=== PATIENT | female | born 2000 | race Caucasian/White ===

== ENCOUNTER 2020-06-05 16:44 | Emergency (ER) | payer BC, SELFPAY ==
[2020-06-05 16:54] VITALS: BP 137/89; PULSE 135; RESP 20; TEMP 37.1; O2SAT 100
--- NOTE | 2020-06-05 17:00 | ED.SKABFB ---
HPI - Skin/Abscess/Foreign Bdy General Chief complaint: Skin/Abscess/Foreign Body Stated complaint: Pos insect bite Time Seen by Provider: 06/05/20 16:56 Source: RN notes reviewed Mode of arrival: ambulatory Limitations: no limitations History of Present Illness HPI narrative: Patient presents today complaining of redness and possible insect bite to her left second finger. She noticed the insect bite last night, but noted red streaking up her hand today. She denies any pain, but states she does have some tingling in the finger. She has tried some Neosporin without relief. complaint: insect bite/sting and discoloration Related Data Home Medications Medication Instructions Recorded Confirmed dextroamphetamine-amphetamine 7.5 mg PO DAILY 06/05/20 06/05/20 [Adderall] Allergies Allergy/AdvReac Type Severity Reaction Status Date / Time No Known Allergies Allergy Verified 06/05/20 16:46 Review of Systems Review of Systems: Narrative: CONSTITUTIONAL: Denies body aches, fever, chills, or sweats. EYES: Denies visual changes, redness, or discharge. ENT: Denies rhinorrhea, congestion, sore throat, or otalgia. CARDIOVASCULAR: Denies chest pain, palpitations, or edema. RESPIRATORY: Denies cough or dyspnea. GASTROINTESTINAL: Denies abdominal pain, nausea, vomiting, or diarrhea. GENITOURINARY: Denies dysuria or hematuria. SKIN: Denies rash, itching, or wounds. MUSCULOSKELETAL: Denies back pain, or myalgia. Possible insect bite to left second finger with redness NEUROLOGIC: Denies headache, numbness, tingling, or weakness. PSYCH: Denies depression or anxiety. PMFSH Past Medical History Medical History (Updated 06/05/20 @ 17:05 by Sujata Wilson, [employer], ) ADHD Anxiety Social History Social History Gender identity (if verbalized by the patient): Female Comments At time of signature, I have reviewed and agree with nursing past medical, surgical, social and family history unless otherwise noted. Please see nursing chart for further information. There is no relevant family history pertinent to the presenting complaint Exam Narrative: Exam Narrative: GENERAL: Well-appearing, well-nourished, and in no acute distress. HEAD: Normocephalic, atraumatic. EYES: EOMI. No redness or drainage. Conjunctivae normal. ENT: Mucous membranes pink and moist. NECK: Normal AROM. CHEST: No respiratory distress. EXTREMITIES: Left second finger: Small puncture wound and scab to the PIP with surrounding erythema. Patient does have some lymphangitis red streaking traveling up to the distal radius. Distal sensation intact. Capillary refill normal. Radial pulse normal. Full range of motion of the wrist. Somewhat limited range of motion of the finger due to mild edema. SKIN: Warm, dry, no rash. Capillary refill normal. Normal skin turgor. NEURO: No focal deficits. Alert and oriented x3. Gait steady. PSYCH: Normal affect. No signs of depression or anxiety. Course Vital Signs Vital signs: Vital Signs Temperature 98.8 F 06/05/20 16:54 Pulse Rate 135 H 06/05/20 16:54 Respiratory Rate 06/05/20 16:54 Blood Pressure 137/89 06/05/20 16:54 Pulse Oximetry 100 06/05/20 16:54 Temperature 98.8 F 06/05/20 16:54 Pulse Rate 135 H 06/05/20 16:54 Respiratory Rate 06/05/20 16:54 Blood Pressure 137/89 06/05/20 16:54 Pulse Oximetry 100 06/05/20 16:54 Reviewed. Pt has been instructed to follow up with her PCP regarding her elevated blood pressure today. MDM - Skin/Abscess/Foreign Bdy Differential Diagnosis Differential diagnosis: Likely abscess of skin or subcutaneous tissue, urticaria, cellulitis, eczema, insect bites, impetigo, contact dermatitis and other (Herpetic daniel) Critical Care Time Critical Care Time Critical Care Time: No Discharge Plan Discharge Clinical Impression: Insect bites Qualifiers: Encounter type: initial encounter Site of insect bite: finger Finger: index fi
== END 2020-06-05 17:07 | disposition home or self-care (01) ==
PROVIDERS: Emergency Provider Nurse Practitioner
DX: S60.461A Insect bite (nonvenomous) of left index finger, initial encounter (principal); L03.012 Cellulitis of left finger; W57.XXXA Bitten or stung by nonvenomous insect and other nonvenomous arthropods, initial encounter; F90.9 Attention-deficit hyperactivity disorder, unspecified type
CPT/HCPCS: 99213; G0463

== ENCOUNTER 2021-03-07 23:44 | Emergency (ER) | payer BC, SELFPAY ==
[2021-03-07 23:54] VITALS: BP 120/86; PULSE 98; RESP 20; TEMP 37.3; O2SAT 100
--- NOTE | 2021-03-08 | ED.EAR ---
HPI - Ear Problem General Chief complaint: Ear Stated complaint: sinus infection Time Seen by Provider: 03/07/21 23:54 Source: patient Mode of arrival: ambulatory Limitations: no limitations History of Present Illness HPI Narrative: 20-year-old with no major medical problems here with complaints of left ear pain for past 2 days. She states that she may also have sinus infection. No history of fever or chills. She denies any cough or shortness of breath. MD Complaint: ear pain Location: left ear Duration: constant Severity: moderate Relieving factors: nothing Exacerbating factors: nothing Discharge from ear: Reports no Associated symptoms ear: headache Related Data Home Medications Medication Instructions Recorded Confirmed dextroamphetamine-amphetamine 7.5 mg PO DAILY 06/05/20 06/05/20 [Adderall] Allergies Allergy/AdvReac Type Severity Reaction Status Date / Time No Known Allergies Allergy Verified 06/05/20 16:46 Review of Systems Review of Systems: All systems reviewed & are unremarkable except as noted in HPI and below Constitutional: Constitutional: Reports no additional constitutional complaints Eyes: Eyes: Reports no additional eye complaints ENT: Reports as per HPI Cardiovascular: Cardiovascular: Reports no additional cardiovascular complaints Respiratory: Respiratory: Reports no additional respiratory complaints Gastrointestinal: Gastrointestinal: Reports no additional gastrointestinal complaints Musculoskeletal: Musculoskeletal: Reports no additional musculoskeletal complaints [facility] Past Medical History Medical History ADHD Anxiety Social History Social History Gender identity (if verbalized by the patient): Female Exam Narrative: Exam Narrative: GENERAL: Well-appearing, well-nourished, and in no acute distress. HEAD: Normocephalic, atraumatic. EYES: PERRLA and EOMI. ENT: Nares clear, no rhinorrhea or epistaxis. Mucous membranes moist.Rt TM is normal, left TM is erythematous , bulging NECK: Supple. CHEST: Clear to auscultation. No respiratory distress. HEART: Regular rate and rhythm. No murmur heard. Normal peripheral pulses. EXTREMITIES: Normal range of motion. No edema. SKIN: Warm, dry, no rash. NEURO: No focal deficits. Alert and oriented x3. PSYCH: Normal mood and affect. Course Vital Signs Vital signs: Vital Signs Temperature 37.3 C 03/07/21 23:54 Pulse Rate 98 03/07/21 23:54 Respiratory Rate 03/07/21 23:54 Blood Pressure 120/86 03/07/21 23:54 Pulse Oximetry 100 03/07/21 23:54 Temperature 37.3 C 03/07/21 23:54 Pulse Rate 98 03/07/21 23:54 Respiratory Rate 20 03/07/21 23:54 Blood Pressure 120/86 03/07/21 23:54 Pulse Oximetry 100 03/07/21 23:54 Medical Decision Making Vital Signs Vital Signs: Vital Signs Temperature 37.3 C 03/07/21 23:54 Pulse Rate 98 03/07/21 23:54 Respiratory Rate 03/07/21 23:54 Blood Pressure 120/86 03/07/21 23:54 Pulse Oximetry 100 03/07/21 23:54 Temperature 37.3 C 03/07/21 23:54 Pulse Rate 98 03/07/21 23:54 Respiratory Rate 03/07/21 23:54 Blood Pressure 120/86 03/07/21 23:54 Pulse Oximetry 100 03/07/21 23:54 Discharge Plan Discharge Clinical Impression: Otitis media Qualifiers: Otitis media type: suppurative Chronicity: acute Laterality: left Recurrence: non-recurrent Spontaneous tympanic membrane rupture: without spontaneous rupture Qualified Code(s): H66.002 - Acute suppurative otitis media without spontaneous rupture of ear drum, left ear Patient Disposition: Home, Self-Care Condition: Stable Instructions: Antibiotic Form, Ear Infection (AC) Additional Instructions: take tylenol or motrin for pain Prescriptions: New amoxicillin 875 mg tablet 875 mg PO Q12H Qty: 14 RF: 0 ibuprofen 600 mg tablet 600 mg PO TI
[2021-03-08 00:14] VITALS: BP 115/85; PULSE 104; RESP 16; O2SAT 99
== END 2021-03-08 00:15 | disposition home or self-care (01) ==
PROVIDERS: Emergency Provider Family Medicine
DX: H66.002 Acute suppurative otitis media without spontaneous rupture of ear drum, left ear (principal); F90.9 Attention-deficit hyperactivity disorder, unspecified type; F41.9 Anxiety disorder, unspecified
CPT/HCPCS: 99283